=== PATIENT | male | born 1995 | race Caucasian/White ===

== ENCOUNTER 2025-05-25 18:31 | Emergency (ER) | payer BC, SELFPAY ==
--- NOTE | 2025-05-25 18:50 | ED.URI ---
HPI - URI/Sore Throat General Chief Complaint: Upper Respiratory Infection Stated Complaint: SORE THROAT/NAUSEA/FEVER/TIRED/MONO EXPOSURE Time Seen by Provider: 05/25/25 19:05 Source: patient Mode of arrival: ambulatory Limitations: no limitations History of Present Illness HPI Narrative: Moiz is a 30-year-old male patient presenting to the clinic today with complaints of sore throat, headache, nausea, low-grade fever, and fatigue times 2-3 days. He reports his daughter tested positive yesterday for mono. States his symptoms worsened this morning with sore throat and fatigue. States he has had a low-grade fever over the past few days. Has taken ibuprofen and Mucinex for his symptoms. Rates pain 03/27 currently Related Data Allergies Allergy/AdvReac Type Severity Reaction Status Date / Time Sulfa (Sulfonamide AdvReac Intermediate Hives Verified 05/25/25 18:40 Antibiotics) Review of Systems Review of Systems: Pertinent positives per HPI. Patient denies any rash, visual changes, dizziness, cough, shortness of breath, chest pain, palpitations, nausea, vomiting, diarrhea, constipation, abdominal pain, or any urinary issues. FOR[facility] Family History Family History Mother Hypertension Anxiety Father Anxiety Social History Social History (Updated 12/08/24 @ 14:45 by Noni ARMAS, CHANDA) Smoking status: Never smoker Tobacco type: cigarettes Smoking end date: 11/18/19 Alcohol intake: current Drinks per week: 8 Substance use: never Do You Feel Safe in your Home?: Yes Lack of Transportation: YES Lack of Food: Never True Current Housing: I Have Housing Concerned About Future Housing: No Difficulty Paying Gas/Electric Bills: No Difficulty Paying for Meds: No Currently Unemployed: YES Education: Bachelor's Degree Difficulty w/ Childcare or Family Care: No Living arrangements: with family 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 There is no relevant family history pertinent to the patient complaint. Exam Narrative: General: Well-developed, well nourished, in no apparent distress Head: Normocephalic, atraumatic Eyes: Pupils equally round and reactive to light bilaterally, EOM intact, sclera and conjunctive clear, no discharge, lids normal Ears: TMs intact and clear, ear canals clear, no drainage, grossly hearing normal. Nose: Nares patent, clear nasal discharge, mild inflammation, no sinus tenderness. Mouth: Oral pharynx red without lesions or masses, good dentition, MMM. Neck: Supple, trachea midline, no enlargement of anterior or posterior cervical nodes, no thyroid masses or goiter palpable. Cardio: Regular rate and rhythm, s1 and s2 normal, no murmur appreciated. Resp: Clear to auscultation bilaterally, no rhonchi, rales, wheezing or rubs Course Course Emergency Course: Portions of this record may have been created with voice recognition software. Level of Care: Express Care Visit Vital Signs Vital signs: Vital Signs Temperature 35.8 C L 05/25/25 18:59 Pulse Rate 98 05/25/25 18:59 Respiratory Rate 16 05/25/25 18:59 Blood Pressure 125/86 05/25/25 18:59 Pulse Oximetry 98 05/25/25 18:59 Temperature 35.8 C L 05/25/25 18:59 Pulse Rate 98 05/25/25 18:59 Respiratory Rate 16 05/25/25 18:59 Blood Pressure 125/86 05/25/25 18:59 Pulse Oximetry 98 05/25/25 18:59 Vital signs reviewed MDM - URI/Sore Throat MDM Narrative Medical decision making narrative: At the time of visit patient is resting comfortably on the exam table. Patient appears to be nontoxic. Labs: Strep and mono testing was performed and were negative in the clinic today. We will send strep for culture. Plan: I suspect patient has viral pharyngitis. Has had exposure to mono. Work note was given and prescription for Zofran was sent to the pharmacy for nausea. Supportive measures were discussed with the patient and they voiced understanding discharge instructions and agrees to treatment plan. Return precautions reviewed Differential Diagnosis Differential diagnosis: Likely upper respiratory infection, otitis media, sinusitis, viral infection, bronchitis, influenza, pharyngitis and other (COVID) Lab Data Labs: Lab Results 05/25/25 Range/Units 19:03 POC Monoscreen Negative (Positive) POC Grp A Strep Screen Negative (Negative) Discharge Plan Discharge Clinical Impression: Benzie exposure Pharyngitis Qualifiers: Pharyngitis/tonsillitis etiology: unspecified etiology Qualified Code(s): J02.9 - Acute pharyngitis, unspecified Fatigue Qualifiers: Fatigue type: unspecified Qualified Code(s): R53.83 - Other fatigue Patient Disposition: Home Condition: Stable Instructions: Antibiotic Form, Mononucleosis (ED), Pharyngitis (ED) Additional Instructions: Benzie and strep testing was negative in the clinic today. We will send strep for culture if this comes back positive we will contact him place you on antibiotics at that time Take medications as prescribed-Zofran as needed for nausea Increase fluids and stay well hydrated Tylenol/motrin for pain/fever Flonase and OTC antihistamines as directed for nasal congestion Vicks vapor rub to open sinuses Sinus rinses for congestion Cepacol spray, cough drops, throat lozenges, warm tea with honey/lemon, gargle salt water to soothe throat BRAT diet for diarrhea Clear liquids x 24 hours then advance as tolerated for nausea/vomiting Go to the ED if you develop a worsening in your condition- high fever not controlled by Tylenol or Motrin, dehydration, weakness, lethargy, shortness of breath, or chest pain. Follow up with your PCP in 3-5 days if symptoms persist. Patient Language: Citizen Of [place] Prescriptions: New ondansetron 8 mg tablet,disintegrating 8 mg PO Q8H PRN (Reason: nausea and vomiting) 3 Days Qty: 10 0RF Follow-up/Referrals: UNKNOWN,DOCTOR [Primary Care Provider] - Stand Alone Forms: Work/School Release IP Time of Disposition: 19:08 Quality NIHSS Nursing Documentation ED NIHSS nursing documentation: reviewed/agree
[2025-05-25 18:59] VITALS: BP 125/86; PULSE 98; RESP 16; TEMP 35.8; O2SAT 98
[2025-05-25 19:05] LABS: EDMONONEGPOS Negative (Positive); EDSTREPNEGPOS1 Negative (Negative)
== END 2025-05-25 19:10 | disposition home or self-care (01) ==
PROVIDERS: Emergency Provider Nurse Practitioner Family
DX: J02.9 Acute pharyngitis, unspecified (principal); R53.83 Other fatigue; Z20.828 Contact with and (suspected) exposure to other viral communicable diseases
CPT/HCPCS: 36416; 86308; 87081; 87880; 99213; G0463